=== PATIENT | female | born 1970 | race Two or more races ===

== ENCOUNTER 2017-12-01 04:17 | Day surgery (SDC) | payer MEDICAID ==
[~2017-12-01] VITALS: Ht 162.6 cm; Wt 92.5 kg
[2017-12-01] MEDS ORDERED: LACTATED RINGER'S 1,000 ML IV ONE (05:00)
[2017-12-01 05:50] LABS: Mean Corpuscular Volume 60.6 fL (80.0-100.0)
[2017-12-01 05:58] LABS: Hematocrit 29.6 % (36.0-46.0); Hemoglobin 8.8 g/dL (12.2-16.2); Mean Corpuscular Hemoglobin 18.1 pg (28.0-32.0); Mean Corpuscular Hgb Conc. 29.9 g/dL (32.0-36.0); Platelet Count (auto) 508 10^3/uL (140-450); Red Blood Cells 4.88 10^6/uL (4.0-5.20); White Blood Cell 9.4 10^3/uL (4.4-10.8)
[2017-12-01 06:07] LABS: INR 0.89 (0.9-1.15); Prothrombin Time 9.7 sec (9.37-12.3); Red Cell Distribution Width 22.3 % (11.8-14.3)
[2017-12-01 06:08] LABS: Band Neutrophils % (manual) 0; Basophils % (manual) 0 (0.0-2.0); Blast Cells 0; Metamyelocytes % 0; Myelocytes % 0; Promyelocytes % 0; Reactive Lymphocytes 0
[2017-12-01 06:15] LABS: Albumin 3.6 g/dL (3.4-5.0); BUN/Creatinine Ratio 20.4; Potassium 4.1 mmol/L (3.5-5.1)
[2017-12-01 06:18] LABS: Bilirubin, Total 0.3 mg/dL (0.2-1.0)
[2017-12-01 06:29] LABS: Eosinophils % (manual) 4 (0-7); Lymphocytes % (manual) 21 (10.0-50.0); Monocytes % (manual) 7 (0-12)
[2017-12-01] MEDS ORDERED: ONDANSETRON HCL 4 MG/2 ML VIAL ONE (07:17)
[2017-12-01] MEDS ORDERED: fentaNYL CITRATE 100 MCG/2 ML VL ONE (07:17)
[2017-12-01] MEDS ORDERED: SODIUM CHLORIDE LOCK 20 ML ONE (07:17)
[2017-12-01] MEDS ORDERED: PROPOFOL 10 MG/ML 20 ML IV ONE (07:17)
[2017-12-01] MEDS ORDERED: MIDAZOLAM HCL 1MG/1ML-2 ML VIAL ONE (07:17)
[2017-12-01] MEDS ORDERED: ceFAZolin 1GM/100ML 100 ML IV ONE (08:13)
[2017-12-01] MEDS ORDERED: LIDOCAINE HCL 2% TOP JELLY 5ML TOP ONE (08:21)
[2017-12-01] MEDS ORDERED: InsuLIN REG 1unit/0.01ml Soln (100units/ml) ONE (08:27)
[2017-12-01] MEDS ORDERED: KETOROLAC TROMETH 60MG/2ML VIAL IM ONE (09:12)
[2017-12-01] MEDS ORDERED: LACTATED RINGER'S 1,000 ML IV SCH (09:28)
[2017-12-01] MEDS ORDERED: ONDANSETRON HCL 4 MG/2 ML VIAL IV PRN (09:30)
[2017-12-01 10:03] VITALS: BP 116/80
[2017-12-01 22:21] LABS: Urine Bacteria FEW /hpf (None Seen); Urine Blood Negative /uL (Negative); Urine Budding Yeast OCCASIONAL /hpf (None Seen); Urine Specific Gravity 1.011 (1.001-1.035); Urine WBC 2 /hpf (0 - 5)
== END 2017-12-01 10:10 | disposition home or self-care (01) ==
LOC: ER 04:19 → SUR 04:20 → ER 08:10 → SUR 10:10
PROVIDERS: ATTEND Specialist
DX: D25.0 Submucous leiomyoma of uterus (principal); N92.1 Excessive and frequent menstruation with irregular cycle; D64.9 Anemia, unspecified; I10 Essential (primary) hypertension; E11.9 Type 2 diabetes mellitus without complications; Z80.3 Family history of malignant neoplasm of breast; Z80.59 Family history of malignant neoplasm of other urinary tract organ
CPT/HCPCS: 58558; J3010; 36415; 80053; 81001; 81025; 82962; 84702; 85007; 85027; 85610; 85730; 86850; 86900; 86901; 94761; 96360; J0690; J1815; J1885; J2250; J2405; J2704

== ENCOUNTER 2018-01-16 20:47 | Emergency (ER) | payer MEDICAID ==
[~2018-01-16] VITALS: Ht 165.1 cm; Wt 92.5 kg
[2018-01-16 21:38] LABS: Basophils # (auto) 0.1 uL; Nucleated Red Blood Cells % 0.1 %
[2018-01-16 21:40] LABS: Basophils % (auto) 0.8 % (0.0-2.0); Eosinophils # (auto) 0.7 uL; Eosinophils % (auto) 5.4 % (0.0-7.0); Hemoglobin 10.6 g/dL (12.2-16.2); Lymphocytes % (auto) 24.8 % (10.0-50.0); Mean Corpuscular Hemoglobin 18.8 pg (28.0-32.0); Mean Corpuscular Hgb Conc. 31.1 g/dL (32.0-36.0); Mean Corpuscular Volume 60.6 fL (80.0-100.0); Monocytes # (auto) 0.6 uL; Monocytes % (auto) 4.9 % (0.0-12.0); Neutrophils # (auto) 7.9 uL; Neutrophils % (auto) 64.1 % (37.0-80.0); Platelet Count (auto) 406 10^3/uL (140-450); Red Blood Cells 5.62 10^6/uL (4.0-5.20); White Blood Cell 12.3 10^3/uL (4.4-10.8)
[2018-01-16 21:46] LABS: Urine Pregnacy Test Negative (Negative)
[2018-01-16 21:49] LABS: Red Cell Distribution Width 20.2 % (11.8-14.3)
[2018-01-16 21:51] LABS: Urine Bacteria FEW /hpf (None Seen); Urine Blood Negative /uL (Negative); Urine Mucus FEW (None Seen); Urine Specific Gravity 1.014 (1.001-1.035); Urine WBC 5 /hpf (0 - 5)
[2018-01-16 21:53] LABS: Alanine Aminotransferase 17 U/L (13-56); Albumin 3.6 g/dL (3.4-5.0); Alkaline Phosphatase 91 U/L (45-117); Anion Gap 10 (5-15); Aspartate Aminotransferase 8 U/L (15-37); BUN/Creatinine Ratio 24.6; Bilirubin, Total 0.2 mg/dL (0.2-1.0); Blood Urea Nitrogen 15 mg/dL (7-18); Calcium 9.2 mg/dL (8.5-10.1); Carbon Dioxide 25 mmol/L (21-32); Chloride 98 mmol/L (98-107); GFR African American 135 mL/min; GFR Non-African American 112 mL/min; Glucose 239 mg/dL (74-106); Magnesium 2.1 mg/dL (1.6-2.6); Potassium 3.7 mmol/L (3.5-5.1); Sodium 133 mmol/L (136-145); Total Protein 8.2 g/dL (6.4-8.2)
[2018-01-16 21:59] LABS: Alcohol, Urine < 3.0 mg/dL (0-5); Amphetamine Screen, Urine NEGATIVE (NEGATIVE); Barbiturate Scree,Urine NEGATIVE (NEGATIVE); Benzodiazephine Screen, Urine NEGATIVE (NEGATIVE); Cannabinoid Screen, Urine NEGATIVE (NEGATIVE); Cocaine Screen, Urine NEGATIVE (NEGATIVE); Opiate Scree,Urine NEGATIVE (NEGATIVE); Phencyclidine Screen, Urine NEGATIVE (NEGATIVE)
[2018-01-17] MEDS ORDERED: HYDROcodone-ACET 10/325MG TAB PO ONE (03:45)
[2018-01-17 04:00] VITALS: BP 127/86
== END 2018-01-17 04:33 | disposition home or self-care (01) ==
LOC: ER 20:47
DX: M94.0 Chondrocostal junction syndrome [Tietze] (principal); R07.89 Other chest pain; E11.9 Type 2 diabetes mellitus without complications; I10 Essential (primary) hypertension
CPT/HCPCS: 36415; 80053; 80307; 81001; 81025; 83735; 83880; 84484; 85025; 93005

== ENCOUNTER 2019-02-09 23:24 | Inpatient (IN) | payer MEDICAID ==
[~2019-02-09] VITALS: Ht 165.1 cm; Wt 92.0 kg
[2019-02-10] VITALS (10 sets, daily range): BP systolic 103–129; BP diastolic 56–75
[2019-02-10 00:20] LABS: Urine Bacteria NONE SEEN /hpf (None Seen); Urine Blood 2+ /uL (Negative); Urine Specific Gravity 1.028 (1.001-1.035); Urine WBC None Seen /hpf (0 - 5)
[2019-02-10 02:19] LABS: Basophils # (auto) 0.1 uL
[2019-02-10 02:20] LABS: Eosinophils # (auto) 0.2 uL; Hemoglobin 8.1 g/dL (12.2-16.2)
[2019-02-10 02:26] LABS: Lymphocytes # (auto) 2.3 uL; Monocytes # (auto) 0.8 uL; Nucleated Red Blood Cells % 0.1 %
[2019-02-10 02:29] LABS: Albumin 3.9 g/dL (3.4-5.0); BUN/Creatinine Ratio 13.7; Basophils % (auto) 0.5 % (0.0-2.0); Calcium 9.4 mg/dL (8.5-10.1); Hematocrit 26.8 % (36.0-46.0); Lymphocytes % (auto) 19.3 % (10.0-50.0); Mean Corpuscular Hemoglobin 16.7 pg (28.0-32.0); Mean Corpuscular Hgb Conc. 30.3 g/dL (32.0-36.0); Neutrophils # (auto) 8.5 uL; Neutrophils % (auto) 71.2 % (37.0-80.0); Platelet Count (auto) 442 10^3/uL (140-450); Potassium 3.7 mmol/L (3.5-5.1); Red Blood Cells 4.86 10^6/uL (4.0-5.20); Red Cell Distribution Width 21.6 % (11.8-14.3); White Blood Cell 11.9 10^3/uL (4.4-10.8)
[2019-02-10 02:30] LABS: INR 0.93 (0.9-1.15)
[2019-02-10 02:31] LABS: Bilirubin, Total 0.5 mg/dL (0.2-1.0); Total Protein 8.2 g/dL (6.4-8.2)
[2019-02-10 02:56] LABS: Magnesium 1.8 mg/dL (1.6-2.6)
[2019-02-10] MEDS ORDERED: IOHEXOL 300 MG/ML 100ML BOTTLE IJ ONE (03:13)
[2019-02-10] MEDS ORDERED: DEXTROSE (50%) 50ML SYRG IV PRN (05:45)
[2019-02-10] MEDS ORDERED: ONDANSETRON HCL 4 MG/2 ML VIAL IV PRN (05:45)
[2019-02-10] MEDS ORDERED: TEMAZEPAM 15 MG CAP PO PRN (05:45)
[2019-02-10] MEDS ORDERED: ACETAMINOPHEN 325 MG TAB PO PRN (05:45)
--- NOTE | 2019-02-10 06:00 | NUR ---
[facility] admit from [facility] admitted to [facility] after hand off tool received. Patient oriented to primary RN, unit, room, bed, and unit policies regarding patient care and visiting hours. Patient weighed by bedscale and encouraged to call if they need something. All questions and concerns addressed, patient verbalized understanding.
[2019-02-10] MEDS: InsuLIN REG 1unit/0.01ml Soln (100units/ml) SC SCH ×4 (06:26→23:35)
[2019-02-10] MEDS: ACCU-CHEK COMFORT CURVE STRIP VI SCH ×4 (06:26→23:36)
[2019-02-10] MEDS ORDERED: PIO30T PO (06:34)
[2019-02-10] MEDS ORDERED: METF-929 PO (06:34)
[2019-02-10] MEDS ORDERED: ALOG1TAB PO (06:35)
[2019-02-10] MEDS ORDERED: AML5T PO (06:35)
[2019-02-10] MEDS ORDERED: HYDR25TA4 PO (06:36)
--- NOTE | 2019-02-10 08:00 | NUR ---
Opening Shift Note Assumed care of patient, awake and alert. No S/S of distress/SOB or pain. No complaints of vaginal bleeding at this time. Instructed on POC and to call for assist PRN, will continue to monitor for changes Q1hr and PRN.
[2019-02-10] MEDS: FAMOTIDINE 20 MG TAB PO SCH ×2 (09:46→21:16)
[2019-02-10] MEDS: amLODIPine BESYLATE 5 MG TAB PO SCH (09:48)
[2019-02-10 11:57] LABS: Hemoglobin 7.3 g/dL (12.2-16.2)
--- NOTE | 2019-02-10 14:30 | NUR ---
Dr. Nunez at bedside, patient is advised. Instructions received to hold blood transfusion at this time latest HGB-7.3, may transfuse 1 unit packed cells if HGB below 7.
--- NOTE | 2019-02-10 15:04 | NUR ---
Patient complained of hypogastric pain 01/23. Tylenol PO was the only ordered pain medication and was administered. Paged Dr. Nunez about this, waiting for call back.
--- NOTE | 2019-02-10 15:20 | NUR ---
Dr. Nunez returned call, updated on the current status of the patient. Orders received.
[2019-02-10] MEDS: HYDROcodone-ACET 5/325MG TAB PO PRN (17:15)
--- NOTE | 2019-02-10 17:41 | NUR ---
OB/GYNE consult Dr. Ayala at the bedside, patient is advised. Discussed the plan procedure for tomorrow and patient agreed with it. Patient is for Diagnostic Hysteroscopy, Dilatation and Curettage tomorrow 02/11/19. Latest HGB-7.3, per Dr. Ayala may transfuse 1 unit packed cells as ordered. Will continue care.
--- NOTE | 2019-02-10 18:39 | NUR ---
BT of 1 unit packed cells type O+ started. Will continue to monitor.
--- NOTE | 2019-02-10 19:30 | NUR ---
assumed care, pt. awake, one unit prbc going on, v/s stable, with minimal vaginal bleeding noted, to keep monitor.
--- NOTE | 2019-02-10 21:30 | NUR ---
pt. one unit of prbc completed, no blood trnasfusion reaction noted, v/s stable, and recorded.
[2019-02-11 05:00] VITALS: BP 126/78
[2019-02-11] MEDS: InsuLIN REG 1unit/0.01ml Soln (100units/ml) SC SCH ×3 (05:32→17:48)
[2019-02-11] MEDS: ACCU-CHEK COMFORT CURVE STRIP VI SCH ×4 (05:33→23:59)
[2019-02-11 06:19] LABS: Basophils # (auto) 0.1 uL; Eosinophils # (auto) 0.3 uL; Monocytes # (auto) 0.7 uL; Nucleated Red Blood Cells % 0.1 %; White Blood Cell 6.8 10^3/uL (4.4-10.8)
[2019-02-11 06:21] LABS: Basophils % (auto) 1.3 % (0.0-2.0); Eosinophils % (auto) 4.6 % (0.0-7.0); Hematocrit 29.5 % (36.0-46.0); Lymphocytes # (auto) 1.6 uL; Lymphocytes % (auto) 23.4 % (10.0-50.0); Mean Corpuscular Hgb Conc. 30.3 g/dL (32.0-36.0); Mean Corpuscular Volume 59.5 fL (80.0-100.0); Monocytes % (auto) 10.7 % (0.0-12.0); Neutrophils # (auto) 4.1 uL; Platelet Count (auto) 359 10^3/uL (140-450); Red Blood Cells 4.96 10^6/uL (4.0-5.20)
[2019-02-11 06:28] LABS: Red Cell Distribution Width 26.5 % (11.8-14.3)
[2019-02-11 06:35] LABS: Calcium 8.2 mg/dL (8.5-10.1); Potassium 3.6 mmol/L (3.5-5.1)
[2019-02-11 09:22] VITALS: BP 133/74
[2019-02-11] MEDS: amLODIPine BESYLATE 5 MG TAB PO SCH (09:39)
[2019-02-11] MEDS: FAMOTIDINE 20 MG TAB PO SCH ×2 (09:39→21:56)
--- NOTE | 2019-02-11 10:00 | NUR ---
Called OR verified if patient is included on the list for surgery today, per community integration specialist patient is an add on for today and not sure about the time yet.
[2019-02-11] MEDS ORDERED: ceFAZolin 1GM/50ML 50 ML IV ONE (13:19)
--- NOTE | 2019-02-11 13:20 | NUR ---
Patient brought to Pre-op via bed for diagnostic hysteroscopy with D&C. Gave reports to Chilango DODGE.
[2019-02-11] MEDS ORDERED: LIDOCAINE 1% (LOCAL ANESTH.) PF 5ml SDV ONE (13:26)
[2019-02-11] MEDS ORDERED: SUCCINYLCHOLINE CHLORIDE 20 MG/ML 10ML VIAL IV ONE (13:26)
[2019-02-11] MEDS ORDERED: MIDAZOLAM HCL 1MG/1ML-2 ML VIAL ONE (13:29)
[2019-02-11] MEDS ORDERED: ROCURONIUM 10MG/ML 10ML VIAL IV ONE (13:29)
[2019-02-11] MEDS ORDERED: ETOMIDATE (2MG/ML) 20ML VIAL IV ONE (13:29)
[2019-02-11] MEDS ORDERED: METOCLOPRAMIDE HCL 5MG/ml INJ 2ml VIAL ONE (13:31)
[2019-02-11] MEDS ORDERED: fentaNYL CITRATE 100 MCG/2 ML VL ONE (13:42)
[2019-02-11] MEDS ORDERED: NALOXONE HCL 0.4 MG/ML VIAL IV PRN (13:45)
[2019-02-11] MEDS ORDERED: HYDROmorphone HCL 2 MG/ML VL IV PRN ×2 (13:45)
[2019-02-11] MEDS ORDERED: ONDANSETRON HCL 4 MG/2 ML VIAL IV ONE (13:45)
[2019-02-11] MEDS ORDERED: NEOSTIGMINE 1 MG/ML INJ (10mg/10ML VIAL) ONE (14:01)
[2019-02-11] MEDS ORDERED: GLYCOPYRROLATE 0.2 MG/ML 1ML VIAL ONE (14:01)
[2019-02-11] MEDS ORDERED: LACTATED RINGER'S 1,000 ML IV SCH (14:09)
[2019-02-11] MEDS ORDERED: ONDANSETRON HCL 4 MG/2 ML VIAL IV PRN (14:15)
--- NOTE | 2019-02-11 14:45 | NUR ---
RECEIVED REPORTS FROM BIBLE READER, PATIENT BACK TO HER ROOM S/P DIAGNOSTIC HYSTEROSCOPY WITH D&C PERFORMED BY DR. VERA. PATIENT IS ALERT AND ORIENTED, NOT IN RESPIRATORY DISTRESS. BED ALARM ON AND SIDE RAILS UP X2. WITH PERIPADS NOTED WITH MINIMAL BLEEDING. WILL CONTINUE TO MONITOR.
[2019-02-11 15:36] VITALS: BP 113/70
--- NOTE | 2019-02-11 19:30 | NUR ---
Opening Shift Note Received report from Abhishek DODGE. Assumed care of patient, awake and alert. No S/S of distress/SOB or pain. Instructed on POC and to call for assist PRN, will continue to monitor for changes Q1hr and PRN.
[2019-02-11 22:00] VITALS: BP 136/72
[2019-02-12 05:00] VITALS: BP 108/55
[2019-02-12] MEDS: ACCU-CHEK COMFORT CURVE STRIP VI SCH (06:06)
[2019-02-12] MEDS: InsuLIN REG 1unit/0.01ml Soln (100units/ml) SC SCH ×2 (06:08)
[2019-02-12 07:40] LABS: Basophils # (auto) 0 uL; Eosinophils # (auto) 0.3 uL; Lymphocytes # (auto) 1.4 uL; Neutrophils # (auto) 6.9 uL
[2019-02-12 07:43] LABS: Basophils % (auto) 0.4 % (0.0-2.0); Hematocrit 28.6 % (36.0-46.0); Hemoglobin 8.5 g/dL (12.2-16.2); Lymphocytes % (auto) 15.1 % (10.0-50.0); Mean Corpuscular Hemoglobin 17.6 pg (28.0-32.0); Mean Corpuscular Hgb Conc. 29.7 g/dL (32.0-36.0); Mean Corpuscular Volume 59.2 fL (80.0-100.0); Monocytes # (auto) 0.6 uL; Neutrophils % (auto) 74.5 % (37.0-80.0); Platelet Count (auto) 352 10^3/uL (140-450); Red Blood Cells 4.83 10^6/uL (4.0-5.20); White Blood Cell 9.3 10^3/uL (4.4-10.8)
[2019-02-12 07:58] LABS: Red Cell Distribution Width 24.7 % (11.8-14.3)
--- NOTE | 2019-02-12 08:00 | NUR ---
Opening Shift Note Assumed care of patient, awake and alert. No S/S of distress/SOB or pain. With small amount of vaginal spotting as stated by patient. Instructed on POC and to call for assist PRN, will continue to monitor for changes Q1hr and PRN.
[2019-02-12 08:05] LABS: BUN/Creatinine Ratio 16.3; Calcium 8.1 mg/dL (8.5-10.1); Potassium 3.7 mmol/L (3.5-5.1)
[2019-02-12 08:29] VITALS: BP 138/68
[2019-02-12] MEDS: amLODIPine BESYLATE 5 MG TAB PO SCH (09:23)
[2019-02-12] MEDS: HYDROcodone-ACET 5/325MG TAB PO PRN (09:24)
[2019-02-12] MEDS: FAMOTIDINE 20 MG TAB PO SCH (09:24)
[2019-02-12 11:05] VITALS: BP 138/68
--- NOTE | 2019-02-12 12:30 | NUR ---
Discharge instructions given as ordered. Encourage to follow up with PMD Dr. Soto and Dr. Ayala OB/GYNE in 2 weeks as instructed. All questions and concerns addressed. Patient verbalized understanding. Medication reconciliation form completed and copy given to patient. IV removed with catheter intact, pressure dressing applied. Patient taken to vehicle via wheelchair with all personal belongings, accompanied by staff and family member. No distress noted at time of departure.
== END 2019-02-12 12:10 | disposition home or self-care (01) | DRG 517 ==
LOC: ER 23:27 → OVERFLOW 23:28 → EAST 02-10 05:53
PROVIDERS: ADMIT Nurse Practitioner; ATTEND Hospitalist
PROC: 30233N1 Transfusion of Nonautologous Red Blood Cells into Peripheral Vein, Percutaneous Approach (ICD-10-PCS; 2019-02-10)
PROC: 0UDB8ZZ Extraction of Endometrium, Via Natural or Artificial Opening Endoscopic (ICD-10-PCS; principal; 2019-02-11 13:23)
DX: D25.9 Leiomyoma of uterus, unspecified (principal); R65.10 Systemic inflammatory response syndrome (SIRS) of non-infectious origin without acute organ dysfunction; D62 Acute posthemorrhagic anemia; D63.8 Anemia in other chronic diseases classified elsewhere; D50.0 Iron deficiency anemia secondary to blood loss (chronic); E11.9 Type 2 diabetes mellitus without complications; E66.9 Obesity, unspecified; R55 Syncope and collapse; I10 Essential (primary) hypertension; N93.9 Abnormal uterine and vaginal bleeding, unspecified; N92.1 Excessive and frequent menstruation with irregular cycle; Z79.4 Long term (current) use of insulin; Z90.710 Acquired absence of both cervix and uterus; Z68.33 Body mass index [BMI] 33.0-33.9, adult
CPT/HCPCS: 36415; 36430; 70450; 71046; 74177; 76830; 76856; 80048; 80053; 81001; 82962; 83735; 84484; 84702; 85014; 85018; 85025; 85610; 85730; 86850; 86900; 86901; 86920; 93005; 96360; G0378; J0330; J0690; J1815; J2250

== ENCOUNTER 2019-05-17 06:45 | Inpatient (IN) | payer MEDICAID ==
[2019-05-06 12:28] LABS: Urine Bacteria NONE SEEN /hpf (None Seen); Urine Blood Negative /uL (Negative); Urine Specific Gravity 1.011 (1.001-1.035); Urine WBC 1 /hpf (0 - 5)
[2019-05-06 12:32] LABS: Basophils # (auto) 0.1 uL; Eosinophils # (auto) 0.1 uL; Eosinophils % (auto) 1.1 % (0.0-7.0); Lymphocytes # (auto) 2.7 uL; Monocytes # (auto) 0.5 uL
[2019-05-06 12:35] LABS: Basophils % (auto) 0.5 % (0.0-2.0); Hematocrit 33.4 % (36.0-46.0); Hemoglobin 9.9 g/dL (12.2-16.2); Mean Corpuscular Hgb Conc. 29.5 g/dL (32.0-36.0); Mean Corpuscular Volume 60.8 fL (80.0-100.0); Monocytes % (auto) 5.1 % (0.0-12.0); Neutrophils # (auto) 7.3 uL; Neutrophils % (auto) 68.3 % (37.0-80.0); Nucleated Red Blood Cells % 0.1 %; Platelet Count (auto) 426 10^3/uL (140-450); Red Blood Cells 5.49 10^6/uL (4.0-5.20); White Blood Cell 10.7 10^3/uL (4.4-10.8)
[2019-05-06 12:36] LABS: Red Cell Distribution Width 20.8 % (11.8-14.3)
[2019-05-06 12:40] LABS: INR 0.94 (0.9-1.15); Partial Thromboplastin Time 30.2 sec (23.64-32.05)
[2019-05-06 12:57] LABS: Albumin 4.1 g/dL (3.4-5.0); Bilirubin, Total 0.4 mg/dL (0.2-1.0); Calcium 9.1 mg/dL (8.5-10.1); Potassium 4.1 mmol/L (3.5-5.1); Total Protein 8.6 g/dL (6.4-8.2)
[2019-05-13 09:51] LABS: Basophils # (auto) 0 uL; Eosinophils # (auto) 0.2 uL; Hematocrit 30.6 % (36.0-46.0); Lymphocytes # (auto) 1.7 uL; Monocytes # (auto) 0.5 uL; Neutrophils # (auto) 6.9 uL; White Blood Cell 9.3 10^3/uL (4.4-10.8)
[2019-05-13 09:54] LABS: Basophils % (auto) 0.4 % (0.0-2.0); Eosinophils % (auto) 2.6 % (0.0-7.0); Hemoglobin 9.6 g/dL (12.2-16.2); Mean Corpuscular Hemoglobin 19.1 pg (28.0-32.0); Mean Corpuscular Hgb Conc. 31.3 g/dL (32.0-36.0); Mean Corpuscular Volume 61.1 fL (80.0-100.0); Platelet Count (auto) 397 10^3/uL (140-450); Red Blood Cells 5.01 10^6/uL (4.0-5.20)
[2019-05-13 09:59] LABS: Urine Bacteria FEW /hpf (None Seen); Urine Blood Negative /uL (Negative); Urine Specific Gravity 1.008 (1.001-1.035); Urine WBC 10 /hpf (0 - 5)
[2019-05-13 10:00] LABS: Red Cell Distribution Width 21.2 % (11.8-14.3)
[2019-05-13 10:02] LABS: INR < 0.93 (0.9-1.15); Partial Thromboplastin Time 29.9 sec (23.64-32.05)
[2019-05-13 11:14] LABS: Potassium 4.4 mmol/L (3.5-5.1)
[2019-05-13 11:25] LABS: Albumin 3.5 g/dL (3.4-5.0); BUN/Creatinine Ratio 18.6; Bilirubin, Total 0.4 mg/dL (0.2-1.0); Calcium 8.7 mg/dL (8.5-10.1); Total Protein 7.9 g/dL (6.4-8.2)
[~2019-05-17] VITALS: Ht 165.1 cm; Wt 99.3 kg
[~2019-05-17 06:45] MED LIST: INSDRIP SUBCUT; METF-929 PO
[2019-05-17] MEDS ORDERED: ceFAZolin 1GM/50ML 100 ML IV ONE (07:50)
[2019-05-17] MEDS ORDERED: diphenhdrAMINE HCL 25 MG CAP PO PRN (08:45)
[2019-05-17] MEDS ORDERED: NEOSTIGMINE 1 MG/ML INJ (10mg/10ML VIAL) IV ONE (09:45)
[2019-05-17] MEDS ORDERED: fentaNYL CITRATE 100 MCG/2 ML VL ONE (09:45)
[2019-05-17] MEDS ORDERED: GLYCOPYRROLATE 0.2 MG/ML 1ML VIAL IV ONE (09:45)
[2019-05-17] MEDS ORDERED: ROCURONIUM 10MG/ML 10ML VIAL IV ONE (09:45)
[2019-05-17] MEDS ORDERED: SODIUM CHLORIDE LOCK 10 ML ONE (09:45)
[2019-05-17] MEDS ORDERED: ONDANSETRON HCL 4 MG/2 ML VIAL ONE (09:45)
[2019-05-17] MEDS ORDERED: HYDROmorphone HCL 2 MG/ML VL ONE ×2 (09:45→13:12)
[2019-05-17] MEDS ORDERED: MIDAZOLAM HCL 1MG/1ML-2 ML VIAL ONE (09:45)
[2019-05-17] MEDS ORDERED: PROPOFOL 10 MG/ML 20 ML IV ONE (09:45)
[2019-05-17] MEDS ORDERED: METOCLOPRAMIDE HCL 5MG/ml INJ 2ml VIAL IV PRN (10:00)
[2019-05-17] MEDS ORDERED: ACCU-CHEK COMFORT CURVE STRIP VI ONE (10:00)
[2019-05-17] MEDS ORDERED: fentaNYL CITRATE 100 MCG/2 ML VL IV PRN (10:00)
[2019-05-17] MEDS ORDERED: MORPHINE SULFATE 4 MG/ML SYR/VIAL IV PRN (10:00)
[2019-05-17] MEDS: LACTATED RINGER'S 1,000 ML IV SCH ×2 (12:57→20:04)
[2019-05-17] MEDS ORDERED: NITROGLYCERIN 0.4 MG SL TAB SL PRN (13:00)
[2019-05-17] MEDS ORDERED: MORPHINE SULF INJ 2 MG/ML SYRINGE 1ML IV PRN (13:00)
[2019-05-17] MEDS ORDERED: ONDANSETRON HCL 4 MG/2 ML VIAL IV PRN (13:00)
[2019-05-17] MEDS: HYDROmorphone HCL 2 MG/ML VL IV PRN ×5 (13:13→20:02)
[2019-05-17] MEDS ORDERED: DEXTROSE (50%) 50ML SYRG IV PRN (13:15)
[2019-05-17 15:14] VITALS: BP 151/80
[2019-05-17 16:56] VITALS: BP 162/92
[2019-05-17 17:45] LABS: Hemoglobin 8.9 g/dL (12.2-16.2); Mean Corpuscular Volume 61.3 fL (80.0-100.0); Platelet Count (auto) 368 10^3/uL (140-450)
[2019-05-17 17:47] LABS: Hematocrit 29.2 % (36.0-46.0); Mean Corpuscular Hemoglobin 18.6 pg (28.0-32.0); Mean Corpuscular Hgb Conc. 30.3 g/dL (32.0-36.0); Red Blood Cells 4.77 10^6/uL (4.0-5.20); White Blood Cell 22.5 10^3/uL (4.4-10.8)
[2019-05-17] MEDS: ACCU-CHEK COMFORT CURVE STRIP VI SCH (18:00)
[2019-05-17 18:02] LABS: Band Neutrophils % (manual) 0; Basophils % (manual) 0 (0.0-2.0); Blast Cells 0; Eosinophils % (manual) 0 (0-7); Metamyelocytes % 0; Myelocytes % 0; Promyelocytes % 0; Reactive Lymphocytes 0; Red Cell Distribution Width 21.2 % (11.8-14.3)
[2019-05-17] MEDS: InsuLIN REG 1unit/0.01ml Soln (100units/ml) SC SCH (18:54)
[2019-05-17 19:20] LABS: Lymphocytes % (manual) 5 (10.0-50.0); Monocytes % (manual) 4 (0-12)
[2019-05-17 22:00] VITALS: BP 126/83
[2019-05-17] MEDS: ACETAMINOPHEN IV 100 ML IV SCH (23:00)
[2019-05-18] MEDS: ACCU-CHEK COMFORT CURVE STRIP VI SCH ×5 (00:05→22:02)
[2019-05-18] MEDS: InsuLIN REG 1unit/0.01ml Soln (100units/ml) SC SCH ×5 (00:06→22:03)
[2019-05-18] MEDS: HYDROmorphone HCL 2 MG/ML VL IV PRN ×2 (01:52→04:46)
[2019-05-18 05:00] VITALS: BP 91/57
[2019-05-18] MEDS: LACTATED RINGER'S 1,000 ML IV SCH ×3 (05:26→20:57)
--- NOTE | 2019-05-18 08:00 | NUR ---
OPENING SHIFT NOTE ASSUMED CARE OF PATIENT. PATIENT IS AWAKE AND ALERT. NO SOB OR SIGNS OF DISTRESS NOTED. INSTRUCTED ON POC AND TO CALL FOR HELP PRN. BED IN LOWEST POSITION WITH SIDE RAILS UP X2. WILL CONTINUE TO MONITOR.
[2019-05-18 08:56] LABS: Basophils # (auto) 0 uL; Basophils % (auto) 0.2 % (0.0-2.0); Eosinophils # (auto) 0 uL
[2019-05-18 08:59] LABS: Eosinophils % (auto) 0.2 % (0.0-7.0); Hematocrit 26.4 % (36.0-46.0); Hemoglobin 8.1 g/dL (12.2-16.2); Lymphocytes % (auto) 7.4 % (10.0-50.0); Mean Corpuscular Hemoglobin 18.6 pg (28.0-32.0); Mean Corpuscular Hgb Conc. 30.7 g/dL (32.0-36.0); Mean Corpuscular Volume 60.7 fL (80.0-100.0); Monocytes # (auto) 1.2 uL; Neutrophils # (auto) 10.9 uL; Neutrophils % (auto) 83.2 % (37.0-80.0); Platelet Count (auto) 356 10^3/uL (140-450); Red Blood Cells 4.34 10^6/uL (4.0-5.20); White Blood Cell 13.1 10^3/uL (4.4-10.8)
[2019-05-18 09:00] VITALS: BP 92/53
[2019-05-18 09:14] LABS: Calcium 7.6 mg/dL (8.5-10.1); Potassium 4.2 mmol/L (3.5-5.1)
[2019-05-18] MEDS ORDERED: ONDANSETRON HCL 4 MG/2 ML VIAL IV PRN (09:15)
[2019-05-18] MEDS ORDERED: BISACODYL 10 MG RECT SUPP PR PRN (09:15)
[2019-05-18 09:19] LABS: BUN/Creatinine Ratio 14.1; Bilirubin, Total 0.8 mg/dL (0.2-1.0); Total Protein 7.1 g/dL (6.4-8.2)
[2019-05-18] MEDS: DOCUSATE CALCIUM 240 MG CAP PO SCH (10:30)
[2019-05-18] MEDS: HYDROcodone-ACET 10/325MG TAB PO PRN ×3 (10:31→20:04)
[2019-05-18] MEDS: ACETAMINOPHEN IV 100 ML IV SCH (10:31)
[2019-05-18] MEDS: SIMETHICONE 80 MG CHEWABLE TABLET PO SCH ×3 (12:30→20:04)
[2019-05-18 13:04] LABS: Basophils # (auto) 0 uL; Basophils % (auto) 0.3 % (0.0-2.0); Eosinophils # (auto) 0 uL; Eosinophils % (auto) 0.3 % (0.0-7.0); White Blood Cell 12.6 10^3/uL (4.4-10.8)
[2019-05-18 13:06] LABS: Hematocrit 25.6 % (36.0-46.0); Hemoglobin 7.9 g/dL (12.2-16.2); Lymphocytes # (auto) 1.2 uL; Lymphocytes % (auto) 9.5 % (10.0-50.0); Mean Corpuscular Hemoglobin 18.9 pg (28.0-32.0); Mean Corpuscular Hgb Conc. 30.9 g/dL (32.0-36.0); Monocytes # (auto) 1.2 uL; Monocytes % (auto) 9.6 % (0.0-12.0); Neutrophils # (auto) 10.1 uL; Neutrophils % (auto) 80.3 % (37.0-80.0); Platelet Count (auto) 334 10^3/uL (140-450)
[2019-05-18 13:09] LABS: Red Cell Distribution Width 21.2 % (11.8-14.3)
[2019-05-18 13:32] VITALS: BP 97/61
[2019-05-18 17:09] VITALS: BP 123/67
--- NOTE | 2019-05-18 17:50 | NUR ---
ADVANCED DIET TO FULL LIQUID. PER DR INSTRUCTIONS.
--- NOTE | 2019-05-18 19:17 | NUR ---
Received patient sitting up in chair, awake, alert, no distress noted, daughter at bedside.
[2019-05-18] MEDS: DOCUSATE SOD 100 MG CAP PO PRN (20:04)
[2019-05-18 20:24] VITALS: BP 130/73
[2019-05-18] MEDS ORDERED: FOLIC ACID 1 MG TAB PO ONE (20:30)
[2019-05-18] MEDS ORDERED: SODIUM FERR GLUC 62.5MG/5ML 125 MG in SODIUM CHL 0.9% 100 ML IV ONE (20:30)
[2019-05-18] MEDS: SODIUM CHLORIDE 0.9% 1,000 ML IV SCH (20:44)
[2019-05-18 21:42] VITALS: BP 138/79
[2019-05-18 21:44] LABS: Hematocrit 24.7 % (36.0-46.0); Hemoglobin 7.7 g/dL (12.2-16.2)
[2019-05-18] MEDS: INSULIN LANTUS (GLARGINE) 1 /0.01ml (100units/ml) SC SCH (22:02)
--- NOTE | 2019-05-18 22:54 | NUR ---
Ferriecit 125mg IV not available in pyxis, personal carer Pharmacist called to fill order. Addendum: 05/18/19 at 2258 by STEFAN CORONA RN Medication received and given as ordered.
[2019-05-19] VITALS (9 sets, daily range): BP systolic 110–150; BP diastolic 70–92
--- NOTE | 2019-05-19 00:51 | NUR ---
Dressing to lower abdomen taken off per Dr. Ayala, kris intact, right side of wound with slight serosanguineous drainage.
[2019-05-19] MEDS: HYDROcodone-ACET 10/325MG TAB PO PRN ×3 (01:27→18:05)
[2019-05-19] MEDS: LACTATED RINGER'S 1,000 ML IV SCH ×3 (04:57→22:11)
[2019-05-19] MEDS: SIMETHICONE 80 MG CHEWABLE TABLET PO SCH ×4 (05:25→21:01)
[2019-05-19] MEDS: SODIUM CHLORIDE 0.9% 1,000 ML IV SCH (05:32)
[2019-05-19] MEDS: ACCU-CHEK COMFORT CURVE STRIP VI SCH ×4 (05:33→22:11)
[2019-05-19] MEDS: InsuLIN REG 1unit/0.01ml Soln (100units/ml) SC SCH ×4 (05:33→22:12)
[2019-05-19] MEDS: FOLIC ACID 1 MG TAB PO SCH (10:07)
[2019-05-19] MEDS: FERROUS SULFATE 325 MG TAB PO SCH ×2 (10:07→18:01)
[2019-05-19] MEDS: DOCUSATE CALCIUM 240 MG CAP PO SCH (10:08)
[2019-05-19 11:04] LABS: Basophils # (auto) 0 uL; Basophils % (auto) 0.2 % (0.0-2.0); Eosinophils # (auto) 0.1 uL; Hemoglobin 7.1 g/dL (12.2-16.2); Monocytes # (auto) 0.9 uL
[2019-05-19 11:05] LABS: Eosinophils % (auto) 0.4 % (0.0-7.0); Hematocrit 23.2 % (36.0-46.0); Mean Corpuscular Hemoglobin 19.1 pg (28.0-32.0); Mean Corpuscular Hgb Conc. 30.8 g/dL (32.0-36.0); Mean Corpuscular Volume 61.8 fL (80.0-100.0); Monocytes % (auto) 6.1 % (0.0-12.0); Neutrophils # (auto) 12.5 uL; Neutrophils % (auto) 86.3 % (37.0-80.0); Platelet Count (auto) 315 10^3/uL (140-450); Red Blood Cells 3.75 10^6/uL (4.0-5.20); White Blood Cell 14.5 10^3/uL (4.4-10.8)
[2019-05-19 11:11] LABS: Red Cell Distribution Width 21.2 % (11.8-14.3)
[2019-05-19 11:28] LABS: % Iron Saturation 10.8 % (15-50)
[2019-05-19 11:29] LABS: BUN/Creatinine Ratio 12.2; Calcium 7.8 mg/dL (8.5-10.1); Potassium 3.6 mmol/L (3.5-5.1)
--- NOTE | 2019-05-19 12:48 | NUR ---
CALLED DR Robin HATFIELD REGARDING CONSENT FOR PTS BLOOD TRANSFUSION. AWAITING CALL BACK AND FURTHER INSTRUCTIONS.
[2019-05-19] MEDS: HYDROmorphone HCL 2 MG/ML VL IV PRN (13:58)
--- NOTE | 2019-05-19 17:20 | NUR ---
PRBC TRANSFUSION PRE TRANSFUSION VITAL SIGNS DOCUMENTED. NO SIGNS OF DISTRESS NOTED.
--- NOTE | 2019-05-19 18:16 | NUR ---
PRBC TRANSFUSION BEGAN PT TOLERATING TRANSFUSION WELL. VITAL SIGNS DOCUMENTED AND WITHIN NORMAL LIMITS. NO SIGNS OF DISTRESS NOTED. WILL CONTINUE TO MONITOR.
--- NOTE | 2019-05-19 19:19 | NUR ---
RECEIVED PATIENT IN BED ALERT AND RESPONSIVE, DENIES PAIN, NO S/SX OF DISTRESS NOTED. BLOOD TRANSFUSION INFUSING. CALL SARGENT WITH IN REACH, BED IN LOW POSITION.
--- NOTE | 2019-05-19 20:14 | NUR ---
BLOOD TRANSFUSION COMPLETED, NO ADVERSE REACTION NOTED.
[2019-05-19 21:58] LABS: Hematocrit 25.4 % (36.0-46.0); Hemoglobin 8.1 g/dL (12.2-16.2)
[2019-05-19] MEDS: INSULIN LANTUS (GLARGINE) 1 /0.01ml (100units/ml) SC SCH (22:12)
[2019-05-20] VITALS (8 sets, daily range): BP systolic 114–157; BP diastolic 62–89
[2019-05-20] MEDS: HYDROcodone-ACET 10/325MG TAB PO PRN ×4 (02:36→21:11)
[2019-05-20] MEDS: LACTATED RINGER'S 1,000 ML IV SCH (05:36)
[2019-05-20] MEDS: SIMETHICONE 80 MG CHEWABLE TABLET PO SCH ×4 (05:37→21:06)
[2019-05-20] MEDS: ACCU-CHEK COMFORT CURVE STRIP VI SCH ×4 (05:37→21:06)
[2019-05-20] MEDS: InsuLIN REG 1unit/0.01ml Soln (100units/ml) SC SCH ×4 (05:38→21:17)
[2019-05-20 06:00] LABS: Basophils # (auto) 0 uL; Eosinophils # (auto) 0.3 uL; Hemoglobin 7.9 g/dL (12.2-16.2); Mean Corpuscular Hemoglobin 20.2 pg (28.0-32.0)
[2019-05-20 06:06] LABS: Basophils % (auto) 0.4 % (0.0-2.0); Eosinophils % (auto) 2.6 % (0.0-7.0); Hematocrit 25.4 % (36.0-46.0); Lymphocytes # (auto) 1.3 uL; Lymphocytes % (auto) 10.3 % (10.0-50.0); Mean Corpuscular Hgb Conc. 31.2 g/dL (32.0-36.0); Mean Corpuscular Volume 64.6 fL (80.0-100.0); Monocytes % (auto) 7.5 % (0.0-12.0); Neutrophils # (auto) 10.2 uL; Neutrophils % (auto) 79.2 % (37.0-80.0); Platelet Count (auto) 283 10^3/uL (140-450); Red Blood Cells 3.94 10^6/uL (4.0-5.20); White Blood Cell 12.8 10^3/uL (4.4-10.8)
[2019-05-20 06:12] LABS: Red Cell Distribution Width 23.8 % (11.8-14.3)
[2019-05-20 06:23] LABS: Calcium 7.9 mg/dL (8.5-10.1); Potassium 3.1 mmol/L (3.5-5.1)
[2019-05-20 06:25] LABS: BUN/Creatinine Ratio 13.9
--- NOTE | 2019-05-20 08:50 | NUR ---
Maryan VERA AT BEDSIDE. RECEIVED NEW ORDERS. WILL FOLLOW THROUGH.
[2019-05-20] MEDS: FOLIC ACID 1 MG TAB PO SCH (09:00)
[2019-05-20] MEDS: DOCUSATE CALCIUM 240 MG CAP PO SCH (09:00)
[2019-05-20] MEDS ORDERED: POTASSIUM CHL 20 Meq TABLET PO ONE ×2 (09:00→18:15)
[2019-05-20] MEDS: FERROUS SULFATE 325 MG TAB PO SCH ×2 (09:00→18:08)
[2019-05-20] MEDS: SOD CHL 0.9%/ KCL 40MEQ 1,000 ML IV SCH ×2 (10:49→17:20)
[2019-05-20] MEDS: HYDROmorphone HCL 2 MG/ML VL IV PRN ×3 (10:49→23:31)
--- NOTE | 2019-05-20 18:10 | NUR ---
Maryan HATFIELD AT BEDSIDE.
[2019-05-20] MEDS ORDERED: POLYETHYLENE GLYCOL 17 GM PWDR PO ONE (18:15)
--- NOTE | 2019-05-20 18:15 | NUR ---
BLOOD TRANSFUSION ENDED. PATIENT TOLERATED WELL. LUNG SOUNDS CLEAR. WILL CONTINUE CARE.
[2019-05-20 20:51] LABS: Eosinophils # (auto) 0.3 uL; Hemoglobin 8.8 g/dL (12.2-16.2); Lymphocytes # (auto) 1.5 uL; Lymphocytes % (auto) 13.5 % (10.0-50.0); Mean Corpuscular Volume 66.7 fL (80.0-100.0); Monocytes # (auto) 0.9 uL; White Blood Cell 10.8 10^3/uL (4.4-10.8)
[2019-05-20 20:53] LABS: Basophils # (auto) 0.1 uL; Basophils % (auto) 0.5 % (0.0-2.0); Eosinophils % (auto) 2.7 % (0.0-7.0); Hematocrit 27.5 % (36.0-46.0); Mean Corpuscular Hemoglobin 21.4 pg (28.0-32.0); Mean Corpuscular Hgb Conc. 32.1 g/dL (32.0-36.0); Monocytes % (auto) 8.5 % (0.0-12.0); Neutrophils # (auto) 8.1 uL; Neutrophils % (auto) 74.8 % (37.0-80.0); Platelet Count (auto) 320 10^3/uL (140-450); Red Blood Cells 4.13 10^6/uL (4.0-5.20)
[2019-05-20] MEDS: INSULIN LANTUS (GLARGINE) 1 /0.01ml (100units/ml) SC SCH (21:17)
[2019-05-20] MEDS: DOCUSATE SOD 100 MG CAP PO PRN (23:31)
[2019-05-21 04:56] VITALS: BP 147/74
[2019-05-21] MEDS: SIMETHICONE 80 MG CHEWABLE TABLET PO SCH (05:42)
[2019-05-21] MEDS: ACCU-CHEK COMFORT CURVE STRIP VI SCH (05:42)
[2019-05-21] MEDS: InsuLIN REG 1unit/0.01ml Soln (100units/ml) SC SCH (05:42)
--- NOTE | 2019-05-21 06:45 | NUR ---
PATIENT GIVEN DULCOLAX SUPPOSITORY LAST NIGHT, NO BOWEL MOVEMENT OF THIS TIME. PATIENT SAID SHE IS PASSING A LOT OF GAS BUT NO BM. LOWER ABDOMEN INCISION SITE WITH JOANNE INTACT, SLIGHT SEROSANGUINEOUS DRAINAGE NOTED, ABDOMINAL PAD APPLIED.
--- NOTE | 2019-05-21 07:30 | NUR ---
Opening Shift Note RECEIVED REPORT FROM NOC RN. Assumed care of patient, awake and alert. PATIENT ON OXYGEN AT 2 LPM VIA NASAL CANNULA WITH no S/S of distress/SOB or pain. BED IN LOWEST, LOCKED POSITION WITH SIDERAILS UP x2 AND CALL LIGHT WITHIN REACH. Instructed on POC and to call for assist PRN, will continue to monitor for changes Q1hr and PRN.
[2019-05-21 08:05] VITALS: BP 136/71
[2019-05-21] MEDS: HYDROmorphone HCL 2 MG/ML VL IV PRN (08:32)
[2019-05-21] MEDS: FERROUS SULFATE 325 MG TAB PO SCH (08:32)
[2019-05-21 09:10] VITALS: BP 136/71
[2019-05-21] MEDS: FOLIC ACID 1 MG TAB PO SCH (09:38)
[2019-05-21] MEDS: DOCUSATE CALCIUM 240 MG CAP PO SCH (09:38)
[2019-05-21 12:45] VITALS: BP 153/80
[2019-05-21 13:00] VITALS: BP 153/80
[2019-05-21] MEDS: HYDROcodone-ACET 10/325MG TAB PO PRN (13:22)
--- NOTE | 2019-05-21 15:02 | NUR ---
D/C Planning Per consult for home health safety evaluation. Contact [facility] Ph:) Fax:) faxed medical records. Pérez Becerra Pt has been accepted and service to start within 48 hrs upon d/c day. Contact [facility] Ph:) Fax:) Faxed medical records requesting authorization. Pérez Holt from [facility] authorization for home health is [id number]. Informed RN Ricci. Addendum: 05/21/19 at 1507 by MARGARITO SCHUSTER Amended: Links added.
== END 2019-05-21 14:38 | disposition home health service (06) | DRG 519 ==
LOC: SUR 06:45 → WEST WING 14:33
PROVIDERS: ADMIT Specialist; ATTEND Specialist
PROC: 0UT10ZZ Resection of Left Ovary, Open Approach (ICD-10-PCS; 2019-05-17)
PROC: 0UT60ZZ Resection of Left Fallopian Tube, Open Approach (ICD-10-PCS; 2019-05-17)
PROC: 0DNW0ZZ Release Peritoneum, Open Approach (ICD-10-PCS; 2019-05-17)
PROC: 0UT90ZL Resection of Uterus, Supracervical, Open Approach (ICD-10-PCS; principal; 2019-05-17 10:27)
PROC: 30233N1 Transfusion of Nonautologous Red Blood Cells into Peripheral Vein, Percutaneous Approach (ICD-10-PCS; 2019-05-19)
DX: D25.9 Leiomyoma of uterus, unspecified (principal); D62 Acute posthemorrhagic anemia; E66.01 Morbid (severe) obesity due to excess calories; E11.9 Type 2 diabetes mellitus without complications; E87.6 Hypokalemia; I10 Essential (primary) hypertension; K66.0 Peritoneal adhesions (postprocedural) (postinfection); N83.202 Unspecified ovarian cyst, left side; N92.1 Excessive and frequent menstruation with irregular cycle; Z79.4 Long term (current) use of insulin; Z80.49 Family history of malignant neoplasm of other genital organs; Z82.49 Family history of ischemic heart disease and other diseases of the circulatory system; Z83.3 Family history of diabetes mellitus; Z90.49 Acquired absence of other specified parts of digestive tract; Z98.51 Tubal ligation status; Z98.891 History of uterine scar from previous surgery; Z68.36 Body mass index [BMI] 36.0-36.9, adult; Z79.899 Other long term (current) drug therapy
CPT/HCPCS: 36415; 80048; 80053; 81001; 82962; 83036; 83540; 83550; 84702; 85007; 85014; 85018; 85025; 85027; 85610; 85730; 86850; 86900; 86901; 86920; 87040; G0378; J0131; J0690; J1815; J2250; J2405; J2704

== ENCOUNTER 2019-05-21 21:13 | Emergency (ER) | payer MEDICAID ==
[~2019-05-21] VITALS: Ht 165.1 cm; Wt 77.1 kg
[2019-05-21 23:15] VITALS: BP 154/91
[2019-05-21] MEDS ORDERED: IBUPROFEN 800 MG TAB PO ONE (23:15)
[2019-05-21] MEDS ORDERED: HYDROcodone-ACET 5/325MG TAB PO ONE (23:15)
== END 2019-05-21 23:39 | disposition home or self-care (01) ==
LOC: ER 21:13
DX: G89.18 Other acute postprocedural pain (principal); Z76.0 Encounter for issue of repeat prescription; Z90.710 Acquired absence of both cervix and uterus; E11.9 Type 2 diabetes mellitus without complications; I10 Essential (primary) hypertension; Z79.899 Other long term (current) drug therapy